=== PATIENT | male | born 1990 | race Caucasian/White ===

== ENCOUNTER 2017-05-14 12:17 | Emergency (ER) | payer OTHER ==
[~2017-05-14] VITALS: Ht 182.9 cm; Wt 145.2 kg
[2017-05-14] MEDS ORDERED: TUMS PO (12:54)
[2017-05-14] MEDS ORDERED: MULTIPLE VITAM1 EAC2 PO (12:54)
[2017-05-14 13:00] LABS: ABSOLUTE NEUTROPHILS 7.4 thou/uL (1.4-8.2); BASOPHILS 0.5 % (0.0-2.0); EOSINOPHILS 0.2 % (0.0-3.0); HEMATOCRIT 41.9 % (42.0-52.0); HEMOGLOBIN 14.5 gm/dL (14.0-18.0); LYMPHOCYTES 18.5 % (24.0-44.0); MCH 29.4 pg (26.0-34.0); MCHC 34.5 g/dL (28.0-37.0); MCV 85.3 fL (80.0-100.0); MONOCYTES 11.6 % (1.0-8.0); PLATELET COUNT 297 thou/uL (150-400); POLYS 69.2 % (36.0-66.0); RBC 4.91 mil/uL (4.50-6.00); RDW 13.4 % (10.5-14.5); WBC 10.8 thou/uL (4.0-11.0)
[2017-05-14 13:01] LABS: MANUAL DIFF NO
[2017-05-14 13:10] LABS: CREATININE 1.1 mg/dL (0.7-1.3)
[2017-05-14 13:15] LABS: TOTAL BILIRUBIN 0.7 mg/dL (<0.1-1.0); TOTAL PROTEIN 8.1 g/dL (6.4-8.2)
[2017-05-14] MEDS ORDERED: NORCO 5-325 TA1 EACH PO (13:33)
[2017-05-14 13:38] VITALS: BP 144/80
[2017-05-14] MEDS ORDERED: ONDANSETRON HCL4 M2 PO (13:41)
[2017-05-14 13:51] LABS: URINE BILIRUBIN NEGATIVE (Negative); URINE BLOOD NEGATIVE (Negative); URINE COLOR YELLOW; URINE GLUCOSE-RANDOM* NEGATIVE (Negative); URINE KETONES NEGATIVE (Negative); URINE NITRITE NEGATIVE (Negative)
[2017-05-14 14:16] LABS: SSA (PROTEIN CONFIRMATORY) NEGATIVE (Negative); URINE PROTEIN (DIPSTICK) NEGATIVE (Negative)
== END 2017-05-14 13:39 | disposition home or self-care (01) ==
LOC: ER 12:17
PROVIDERS: Physician Assistant
DX: K80.20 Calculus of gallbladder without cholecystitis without obstruction (principal); R94.5 Abnormal results of liver function studies

== ENCOUNTER 2017-05-23 05:38 | Day surgery (SDC) | payer OTHER ==
[~2017-05-23] VITALS: Ht 182.9 cm; Wt 144.2 kg
[2017-05-23] VITALS (7 sets, daily range): BP systolic 126–166; BP diastolic 70–93
--- NOTE | ~2017-05-23 | O ---
[facility] [place] [address] OPERATIVE REPORT Name: UJN MALDONADO Room #: 408-P [facility]..#: [id number] Admission: 05/23/17 Attend Phys: Daryl Newberry MD, F Discharge: Date of : 88 Report #: [id number] THIS REPORT FOR: //name// CC: FAM unknown Daryl Newberry DATE OF SERVICE: 05/23/2017 PREOPERATIVE DIAGNOSIS: Acute on chronic cholecystitis with cholelithiasis. POSTOPERATIVE DIAGNOSIS: Acute on chronic cholecystitis with cholelithiasis. OPERATIVE PROCEDURE: Laparoscopic cholecystectomy with intraoperative cholangiogram (IOC). SURGEON: Daryl Newberry MD ACCOUNTING ASSISTANT: Sanya Cortez DO SECOND REHABILITATION COUNSELOR: Jon Angulo MS3. INDICATIONS: A 26-year-old male with approximately 10-14 days of upper abdominal pain associated with right upper quadrant pain who presented to the emergency department approximately 10 days ago and was found to have cholelithiasis. At the time of presentation, his liver function tests were slightly elevated. The ultrasound did not demonstrate thickening of the gallbladder wall or suggestion of acute cholecystitis. He was discharged home and referred for surgical evaluation. OPERATIVE PROCEDURE: The patient had a thorough discussion of the procedure, benefits and risks in the office as well as in the preoperative area. He was given preoperative IV antibiotics. He was brought to the operating room suite and had satisfactory induction of general endotracheal anesthesia. The patient's entire abdomen was prepped and draped in usual sterile procedure with DuraPrep solution. The patient was well strapped and taped to the table. After draping was completed, an appropriate timeout was then performed. An open cutdown procedure was performed at the supraumbilical position. The fascia was incised. A 5 mm trocar was then inserted under direct vision and pneumoperitoneum was established. An upper midline 5 mm trocar port was then placed under direct vision. Pneumoperitoneum was clearly established. The 5 mm trocar port in supraumbilical position was then replaced by a 12 mm Susanna with a balloon. The balloon was inflated. Two additional 5 mm ports were placed in the right subcostal position and laterally. The gallbladder was not thickened, was grasped and retracted cephalad and laterally. The cystic duct triangle was clearly delineated. The cystic duct was milked in a retrograde manner. A clip was placed toward the gallbladder. A cystotomy was performed and the [address] [address] OPERATIVE REPORT Name: JUN MALDONADO Room #: 408-P [facility].R.#: [id number] Admission: 05/23/17 Attend Phys: Daryl Newberry MD, F Discharge: Date of : 88 Report #: [id number] catheter was then inserted and clipped in place. An intraoperative cholangiogram was performed demonstrating free flow of contrast into the duodenum. There was no evidence of filling defects present. The hepatic bifurcation was well visualized as well as the right and left hepatic ducts. The taut catheter was removed and the cystic duct was then triply ligated and divided with Sonicision. The cystic artery was identified and doubly ligated with clips and was divided with the Sonicision. The gallbladder was resected from the fossa with the Sonicision. It was placed into an Endobag and removed from the peritoneal cavity. The supraumbilical port site had placement of [id number] 0 PDS sutures under direct vision. Further inspection of the upper abdomen revealed the gallbladder bed to be dry. Photographs were taken and made part of the medical record. After final inspection was completed, all trocars were removed under direct vision. The pneumoperitoneum was deflated. The 0 PDS suture in the supraumbilical port site was then approximated and tied in place. Skin margins were approximated with subcuticular 4-0 Monocryl. The estimated blood loss was less than 5 mL. The patient tolerated the procedure well and he returned directly to PACU in satisfactory and stable condition. <ELECTRONICALLY SIGNED> By: Daryl Newberry MD, FACS 05/24/17 0818 [id number] Daryl Newberry MD, FACS /nt
--- NOTE | ~2017-05-23 | S ---
[facility] [place] [address] SURGICAL PATH RPT PROCEDURE Name: BRAD MALDONADO Room #: DEP [facility] M.R.#: [id number] Admission: 05/23/17 Date of : 88 Discharge: 05/24/17 Report #: [id number] Path Case #: [id number] PATHOLOGY REPORT COLLECTION DATE: 05/23/2017 RECEIVED DATE: 05/23/2017 SUBMITTING PHYS: Dr. Daryl Newberry OTHER PHYS: SPECIMEN(S) RECEIVED: A.Gallbladder * * * * * * * * * * * * FINAL DIAGNOSIS: Gallbladder, cholecystectomy: - Mild chronic cholecystitis. - Cholelithiasis. (IUV:mike; 05/27/2017) PATHOLOGIST: Lu Griffin M.D. REPORT ELECTRONICALLY SIGNED BY: Lu Griffin M.D. DATE/TIME: 05/27/2017 15:26 * * * * * * * * * * * * GROSS PATHOLOGY: Received in formalin labeled "Brad Maldonado gallbladder," is a 5.9 x 2.8 x 1.8 cm, previously opened gallbladder with pale su to pale morales serosal surfaces. Opening the gallbladder reveals a light green, velvety to shaggy mucosa and an average wall thickness of 0.1 cm. Calculi are present that are black and granular in appearance, ranging in size from 0.3 to 0.5 cm in maximum dimension. No masses are noted grossly. Telephone Collector sections from the body and fundus are submitted along with the proximal margin in cassette A1. (DAC; 05/24/2017) CLINICAL HISTORY: Acute and chronic cholecystitis with cholelithiasis INITIAL CPT CODE(S): A; 32823 Professional services performed by [facility] at [facility] [address], [place] [address] Technical services performed by [facility] at [address] [place] [address] [place] [address] SURGICAL PATH RPT PROCEDURE Name: BRAD MALDONADO Room #: DEP [facility].#: [id number] Admission: 05/23/17 Date of : 88 Discharge: 05/24/17 Report #: [id number] Path Case #: [id number] [place] [address]. [facility] [address] [place] [address] PHONE: [phone] DIRECTOR: Alfonso Melvin M.D. * * * END OF REPORT * * *
[~2017-05-23 05:38] MED LIST: MULTIPLE VITAM1 EAC2 PO; NORCO 5-325 TA1 EACH PO; ONDANSETRON HCL4 M2 PO; TUMS PO
[2017-05-23 11:10] LABS: HEMATOCRIT 42.6 % (42.0-52.0); HEMOGLOBIN 14.6 gm/dL (14.0-18.0); MCH 29.5 pg (26.0-34.0); MCHC 34.2 g/dL (28.0-37.0); MCV 86.2 fL (80.0-100.0); RBC 4.94 mil/uL (4.50-6.00); RDW 13.3 % (10.5-14.5); WBC 6.9 thou/uL (4.0-11.0)
[2017-05-23 11:18] LABS: CALCIUM 9.5 mg/dL (8.5-10.1); CREATININE 1.1 mg/dL (0.7-1.3); POTASSIUM 4.2 mmol/L (3.5-5.1)
[2017-05-23 11:24] LABS: ALBUMIN 4.2 g/dL (3.4-5.0); TOTAL BILIRUBIN 0.5 mg/dL (<0.1-1.0); TOTAL PROTEIN 8.3 g/dL (6.4-8.2)
[2017-05-24 03:30] VITALS: BP 112/61
[2017-05-24 04:14] LABS: HEMATOCRIT 40.1 % (42.0-52.0); HEMOGLOBIN 13.6 gm/dL (14.0-18.0); MCH 29.4 pg (26.0-34.0); MCV 86.3 fL (80.0-100.0); RBC 4.65 mil/uL (4.50-6.00); RDW 13.3 % (10.5-14.5); WBC 12.3 thou/uL (4.0-11.0)
[2017-05-24 07:51] VITALS: BP 118/67
[2017-05-24 11:25] VITALS: BP 118/67
[2017-05-24 11:49] VITALS: BP 118/67
== END 2017-05-24 14:12 ==
LOC: TBA 05:38 → OR 05:38 → 4N 16:23 → OR 05-24 14:12
PROVIDERS: Surgery
DX: K80.12 Calculus of gallbladder with acute and chronic cholecystitis without obstruction (principal); K21.9 Gastro-esophageal reflux disease without esophagitis; Z88.8 Allergy status to other drugs, medicaments and biological substances
CPT/HCPCS: 50010; 50101; 50249; 50411; 50555; 50962; 51489; 51975; 52265; 53307; 53314; 54022; 54118; 55245; 55317; 56462; 56525; 56526; 62110; 62900; 70005